=== PATIENT | female | born 1970 | race Asian ===

== ENCOUNTER 2023-11-04 20:23 | Inpatient (IN) ==
[~2023-11-04 20:23] MED LIST: ACETYLCYSTEINE IV ONE; D5W IV ONE
[2023-11-04 20:57] LABS: ABS Basophils 0.1 10^3/uL (0.0-0.1); ABS Eosinophils 0.2 10^3/uL (0.0-0.5); ABS Lymphocytes 2.9 10^3/uL (1.0-4.8); ABS Monocytes 0.8 10^3/uL (0.0-0.9); ABS Nucleated RBC 0.01 10^3/ul; Hematocrit 42.4 % (35-45); Hemoglobin 14.1 g/dL (11.5-14.3); Lymphocyte % 18.2 %; Mean Corpuscular Hemoglobin 29.7 pg (27-33); Mean Corpuscular Hgb Conc 33.2 g/dL (31-36); Mean Corpuscular Volume 89.4 fL (80-97); Mean Platelet Volume 7.1 fL (7.5-11.2); Platelet Count 332 10^3/uL (150-450); Red Blood Count 4.74 10^6/uL (3.63-4.92)
[2023-11-04] MEDS: NS 0.9% 1000 ml BAG 1,000 ML IV ONE ×2 (21:01→23:20)
[2023-11-04] MEDS: Ondansetron 4 mg VIAL 2 MG/ML 2 ml VIAL IV ONE (21:01)
[2023-11-04 21:36] LABS: ALT 86 U/L (7-52); AST 67 U/L (13-39); Albumin 4.7 g/dL (3.2-5.2); Albumin/Globulin Ratio 1.5 (1-3); Alkaline Phosphatase 79 U/L (35-149); Anion Gap 13 mmol/L (2-16); Blood Urea Nitrogen 11 mg/dL (6-24); C Reactive Protein < 1.00 mg/L (<8.01); CO2 Carbon Dioxide 21 mmol/L (22-32); Calcium 9.4 mg/dL (8.6-10.3); Chloride 101 mmol/L (101-111); Creatinine, Serum 0.73 mg/dL (0.51-0.95); Globulin 3.2 g/dL (2-4); Glucose 190 mg/dL (70-100); Lipase 53 U/L (11.0-82.0); Potassium 3.4 mmol/L (3.5-5.0); Sodium 135 mmol/L (135-145); Total Bilirubin 0.5 mg/dL (0.2-1.0); Total Protein 7.9 g/dL (6.4-8.9); eGFR CKD-EPI 98.9 (>60)
[2023-11-04] MEDS: Charcoal Activated/SORBITOL 50 GM/240 ML BTL PO ONE (21:58)
[2023-11-04] MEDS: NS 0.9% 1000 ml BAG 0 ML IV SCH (22:09)
[2023-11-04 22:45] LABS: High Sensitivity Troponin 1 Hr 3 pg/mL (<15)
[2023-11-04] MEDS: ACETYLCYSTEINE IV ONE (23:26)
[2023-11-04] MEDS: D5W IV ONE (23:26)
[2023-11-05] MEDS: NORMOSOL-R pH 7.4 1000 mL BAG 1,000 ML IV SCH (00:55)
[2023-11-05] MEDS: NS 0.9% 1000 ml BAG 1,000 ML IV SCH (00:57)
[2023-11-05 01:02] LABS: ABS Basophils 0.1 10^3/uL (0.0-0.1); ABS Lymphocytes 0.7 10^3/uL (1.0-4.8); ABS Monocytes 0.4 10^3/uL (0.0-0.9); ABS Neutrophils 12.3 10^3/uL (1.5-7.6); Hemoglobin 12.6 g/dL (11.5-14.3); Lymphocyte % 5.2 %; Mean Corpuscular Hemoglobin 29.1 pg (27-33); Mean Corpuscular Hgb Conc 32.3 g/dL (31-36); Mean Corpuscular Volume 90.1 fL (80-97); Platelet Count 226 10^3/uL (150-450); Red Blood Count 4.32 10^6/uL (3.63-4.92); White Blood Count 13.5 10^3/uL (3.8-11.8)
[2023-11-05] MEDS: D5W IV ONE ×2 (01:03→05:17)
[2023-11-05] MEDS: ACETYLCYSTEINE IV ONE ×2 (01:03→05:17)
[2023-11-05 01:07] LABS: Urine Appearance Clear; Urine Bilirubin Negative (Negative); Urine Blood Negative (Negative); Urine Color Light-Yellow; Urine Glucose 3+ (>=300 mg/dL) (Negative); Urine Ketones 4+ (Negative); Urine Nitrite Negative (Negative); Urine Protein Negative (Negative); Urine Specific Gravity 1.017 (1.002-1.030); Urine Urobilinogen Negative (Negative)
[2023-11-05 01:13] LABS: INR 1.04 (0.85-1.14)
[2023-11-05 02:09] LABS: Albumin 3.9 g/dL (3.2-5.2); Albumin/Globulin Ratio 1.4 (1-3); Calcium 7.5 mg/dL (8.6-10.3); Creatinine, Serum 0.57 mg/dL (0.51-0.95); Globulin 2.7 g/dL (2-4); Potassium 3.8 mmol/L (3.5-5.0); Total Bilirubin 0.9 mg/dL (0.2-1.0); Total Protein 6.6 g/dL (6.4-8.9); eGFR CKD-EPI 109.3 (>60)
[2023-11-05 07:16] LABS: ABS Basophils 0.1 10^3/uL (0.0-0.1); ABS Monocytes 0.7 10^3/uL (0.0-0.9); ABS Neutrophils 9.6 10^3/uL (1.5-7.6); Eosinophil % 0.1 %; Hematocrit 37.7 % (35-45); Hemoglobin 12.8 g/dL (11.5-14.3); Lymphocyte % 9.1 %; Mean Corpuscular Hemoglobin 30.2 pg (27-33); Mean Corpuscular Volume 88.8 fL (80-97); Platelet Count 245 10^3/uL (150-450); Red Blood Count 4.24 10^6/uL (3.63-4.92); Red Cell Distribution Width 13.7 % (12-17); White Blood Count 11.4 10^3/uL (3.8-11.8)
[2023-11-05 07:28] LABS: INR 1.11 (0.85-1.14)
[2023-11-05 08:20] LABS: Albumin 3.8 g/dL (3.2-5.2); Albumin/Globulin Ratio 1.4 (1-3); Calcium 7.5 mg/dL (8.6-10.3); Creatinine, Serum 0.56 mg/dL (0.51-0.95); Globulin 2.7 g/dL (2-4); Magnesium 1.8 mg/dL (1.9-2.7); Potassium 3.6 mmol/L (3.5-5.0); Total Bilirubin 1.3 mg/dL (0.2-1.0); Total Protein 6.5 g/dL (6.4-8.9); eGFR CKD-EPI 109.7 (>60)
[2023-11-05] MEDS: Magnesium Sulfate 2 gm BAG 2 GM/50 ML BAG IVPB ONE (09:02)
[2023-11-05] MEDS: Charcoal ACTIVATED 50 GM/240 ML BTL PO ONE ×2 (11:45→21:57)
[2023-11-05] MEDS: CYCLOSPORINE IV ONE ×2 (11:57→14:31)
[2023-11-05 12:08] LABS: INR 1.04 (0.85-1.14)
[2023-11-05 12:57] LABS: Calcium 7.8 mg/dL (8.6-10.3); Creatinine, Serum 0.61 mg/dL (0.51-0.95); Potassium 3.4 mmol/L (3.5-5.0); eGFR CKD-EPI 107.5 (>60)
[2023-11-05 12:58] LABS: Albumin 3.9 g/dL (3.2-5.2); Albumin/Globulin Ratio 1.5 (1-3); Globulin 2.6 g/dL (2-4); Total Bilirubin 1.7 mg/dL (0.2-1.0); Total Protein 6.5 g/dL (6.4-8.9)
[2023-11-05] MEDS: KCL 10 MEQ/50 ML IVPREMIX 10 MEQ/50 ML BAG IV SCH (13:14)
[2023-11-05] MEDS: Octreotide Acetate 50 MCG in NS 0.9% 50 ML 50 ML IV ONE (14:00)
[2023-11-05] MEDS: Ondansetron 4 mg VIAL 2 MG/ML 2 ml VIAL IV PRN (14:16)
[2023-11-05] MEDS: Octreotide Acetate 500 MCG in NS 0.9% 100 ml BAG 100 ML IV SCH (14:19)
[2023-11-05] MEDS: NS 0.9% IVPB ONE (14:31)
[2023-11-05] MEDS: CYCLOSPORINE IVPB ONE (14:31)
[2023-11-05 15:08] LABS: INR 1.02 (0.85-1.14)
[2023-11-05 15:39] LABS: Albumin 4.2 g/dL (3.2-5.2); Albumin/Globulin Ratio 1.4 (1-3); Alkaline Phosphatase 103 U/L (35-149); Blood Urea Nitrogen 5 mg/dL (6-24); CO2 Carbon Dioxide 20 mmol/L (22-32); Calcium 8.3 mg/dL (8.6-10.3); Chloride 108 mmol/L (101-111); Creatinine, Serum 0.55 mg/dL (0.51-0.95); Globulin 2.9 g/dL (2-4); Glucose 149 mg/dL (70-100); Sodium 137 mmol/L (135-145); Total Bilirubin 1.8 mg/dL (0.2-1.0); Total Protein 7.1 g/dL (6.4-8.9); eGFR CKD-EPI 110.2 (>60)
[2023-11-05 15:40] LABS: Anion Gap 9 mmol/L (2-16)
[2023-11-05 16:00] LABS: ALT 934 U/L (7-52)
[2023-11-05 17:20] LABS: Acetaminophen < 15 mcg/mL
[2023-11-05 17:26] LABS: Potassium, Whole Blood 6.2 mmol/L (3.4-4.5)
[2023-11-05 17:58] LABS: INR 1.06 (0.85-1.14)
[2023-11-05 18:30] LABS: Calcium 8.2 mg/dL (8.6-10.3); Creatinine, Serum 0.65 mg/dL (0.51-0.95); Potassium 3.7 mmol/L (3.5-5.0); eGFR CKD-EPI 105.9 (>60)
[2023-11-05 18:39] LABS: Albumin/Globulin Ratio 1.5 (1-3); Globulin 2.7 g/dL (2-4); Total Bilirubin 3.7 mg/dL (0.2-1.0); Total Protein 6.7 g/dL (6.4-8.9)
[2023-11-05 19:39] LABS: Hepatitis B Surface Antigen Nonreactive (Nonreactive)
[2023-11-05 19:44] LABS: Hepatitis A Ab IgM Negative (Negative)
[2023-11-05 19:45] LABS: Hepatitis B Core IgM Nonreactive (Nonreactive)
[2023-11-05 19:56] LABS: Hepatitis C Antibody Negative (Negative)
[2023-11-05] MEDS: ACETYLCYSTEINE IV SCH (23:11)
[2023-11-05] MEDS: D5W IV SCH (23:11)
[2023-11-05 23:31] LABS: INR 1.09 (0.85-1.14)
[2023-11-05 23:54] LABS: Calcium 8.2 mg/dL (8.6-10.3); Creatinine, Serum 0.69 mg/dL (0.51-0.95); Potassium 3.7 mmol/L (3.5-5.0); eGFR CKD-EPI 104.4 (>60)
[2023-11-05 23:56] LABS: Albumin 3.9 g/dL (3.2-5.2); Albumin/Globulin Ratio 1.4 (1-3); Globulin 2.7 g/dL (2-4); Total Bilirubin 4.3 mg/dL (0.2-1.0); Total Protein 6.6 g/dL (6.4-8.9)
[2023-11-06 04:05] LABS: ABS Monocytes 0.6 10^3/uL (0.0-0.9); ABS Neutrophils 6.3 10^3/uL (1.5-7.6); Eosinophil % 0.3 %; Hematocrit 39.4 % (35-45); Hemoglobin 13.6 g/dL (11.5-14.3); Lymphocyte % 12.1 %; Mean Corpuscular Hemoglobin 30.8 pg (27-33); Mean Corpuscular Hgb Conc 34.6 g/dL (31-36); Mean Platelet Volume 7.3 fL (7.5-11.2); Platelet Count 232 10^3/uL (150-450); Red Blood Count 4.43 10^6/uL (3.63-4.92); Red Cell Distribution Width 14.2 % (12-17); White Blood Count 7.9 10^3/uL (3.8-11.8)
[2023-11-06 04:19] LABS: INR 1.11 (0.85-1.14)
[2023-11-06 04:59] LABS: Albumin 3.9 g/dL (3.2-5.2); Albumin/Globulin Ratio 1.4 (1-3); Alkaline Phosphatase 126 U/L (35-149); Anion Gap 8 mmol/L (2-16); Blood Urea Nitrogen 3 mg/dL (6-24); CO2 Carbon Dioxide 23 mmol/L (22-32); Calcium 8.1 mg/dL (8.6-10.3); Chloride 105 mmol/L (101-111); Creatinine, Serum 0.68 mg/dL (0.51-0.95); Globulin 2.8 g/dL (2-4); Glucose 178 mg/dL (70-100); Sodium 136 mmol/L (135-145); Total Bilirubin 3.8 mg/dL (0.2-1.0); Total Protein 6.7 g/dL (6.4-8.9); eGFR CKD-EPI 104.7 (>60)
[2023-11-06 05:03] LABS: Potassium, Whole Blood 4.3 mmol/L (3.4-4.5)
[2023-11-06 05:19] LABS: ALT 1078 U/L (7-52)
[2023-11-06] MEDS: Charcoal Activated/SORBITOL 50 GM/240 ML BTL PO ONE (06:57)
[2023-11-06] MEDS: Charcoal ACTIVATED 50 GM/240 ML BTL PO ONE (07:25)
[2023-11-06 07:54] LABS: INR 1.15 (0.85-1.14)
[2023-11-06 08:30] LABS: Calcium 8.1 mg/dL (8.6-10.3); Creatinine, Serum 0.61 mg/dL (0.51-0.95); Potassium 3.8 mmol/L (3.5-5.0); eGFR CKD-EPI 107.5 (>60)
[2023-11-06 08:32] LABS: Albumin 3.9 g/dL (3.2-5.2); Albumin/Globulin Ratio 1.4 (1-3); Globulin 2.7 g/dL (2-4); Total Protein 6.6 g/dL (6.4-8.9)
[2023-11-06 12:11] LABS: INR 1.15 (0.85-1.14)
[2023-11-06 12:35] LABS: Calcium 8.4 mg/dL (8.6-10.3); Creatinine, Serum 0.64 mg/dL (0.51-0.95); Potassium 3.5 mmol/L (3.5-5.0); eGFR CKD-EPI 106.3 (>60)
[2023-11-06 12:39] LABS: Albumin 3.9 g/dL (3.2-5.2); Albumin/Globulin Ratio 1.4 (1-3); Globulin 2.8 g/dL (2-4); Total Bilirubin 3.4 mg/dL (0.2-1.0); Total Protein 6.7 g/dL (6.4-8.9)
[2023-11-06 15:49] LABS: INR 1.14 (0.85-1.14)
[2023-11-06 17:38] LABS: Albumin 3.8 g/dL (3.2-5.2); Albumin/Globulin Ratio 1.4 (1-3); Calcium 8.3 mg/dL (8.6-10.3); Creatinine, Serum 0.88 mg/dL (0.51-0.95); Globulin 2.7 g/dL (2-4); Potassium 3.6 mmol/L (3.5-5.0); Total Bilirubin 2.8 mg/dL (0.2-1.0); Total Protein 6.5 g/dL (6.4-8.9)
[2023-11-06 21:13] LABS: Calcium 8.3 mg/dL (8.6-10.3); Creatinine, Serum 0.71 mg/dL (0.51-0.95); Potassium 3.6 mmol/L (3.5-5.0); eGFR CKD-EPI 102.2 (>60)
[2023-11-06 22:24] LABS: Albumin 3.8 g/dL (3.2-5.2); Albumin/Globulin Ratio 1.4 (1-3); Globulin 2.7 g/dL (2-4); Total Bilirubin 2.6 mg/dL (0.2-1.0); Total Protein 6.5 g/dL (6.4-8.9)
[2023-11-07 03:00] LABS: Calcium 7.9 mg/dL (8.6-10.3); Creatinine, Serum 0.45 mg/dL (0.51-0.95); Potassium 3.3 mmol/L (3.5-5.0); eGFR CKD-EPI 115.7 (>60)
[2023-11-07 03:06] LABS: Albumin 3.6 g/dL (3.2-5.2); Albumin/Globulin Ratio 1.4 (1-3); Globulin 2.6 g/dL (2-4); Total Bilirubin 2.5 mg/dL (0.2-1.0); Total Protein 6.2 g/dL (6.4-8.9)
[2023-11-07 05:10] LABS: ABS Basophils 0.1 10^3/uL (0.0-0.1); ABS Eosinophils 0.1 10^3/uL (0.0-0.5); ABS Lymphocytes 1.7 10^3/uL (1.0-4.8); ABS Monocytes 0.7 10^3/uL (0.0-0.9); ABS Neutrophils 5.7 10^3/uL (1.5-7.6); Eosinophil % 1.4 %; Hematocrit 38.3 % (35-45); Hemoglobin 13.2 g/dL (11.5-14.3); Lymphocyte % 20.7 %; Mean Corpuscular Hemoglobin 30.5 pg (27-33); Mean Corpuscular Hgb Conc 34.3 g/dL (31-36); Mean Corpuscular Volume 88.8 fL (80-97); Mean Platelet Volume 7.2 fL (7.5-11.2); Platelet Count 208 10^3/uL (150-450); Red Blood Count 4.31 10^6/uL (3.63-4.92); Red Cell Distribution Width 14.1 % (12-17); White Blood Count 8.2 10^3/uL (3.8-11.8)
[2023-11-07 05:55] LABS: Creatinine, Serum 0.5 mg/dL (0.51-0.95); Potassium 3.5 mmol/L (3.5-5.0); eGFR CKD-EPI 112.8 (>60)
[2023-11-07 05:58] LABS: Albumin 3.6 g/dL (3.2-5.2); Albumin/Globulin Ratio 1.3 (1-3); Globulin 2.8 g/dL (2-4); Magnesium 1.9 mg/dL (1.9-2.7); Total Bilirubin 2.3 mg/dL (0.2-1.0); Total Protein 6.4 g/dL (6.4-8.9)
[2023-11-07] MEDS: D5W IV ONE (10:09)
[2023-11-07] MEDS: ACETYLCYSTEINE IV ONE (10:09)
[2023-11-07] MEDS: hydrALAZINE 20 mg/ml 1 ML Vial IV IV SLOW PU PRN (14:20)
[2023-11-07 18:11] LABS: Calcium 8.4 mg/dL (8.6-10.3); Creatinine, Serum 0.42 mg/dL (0.51-0.95); Potassium 3.4 mmol/L (3.5-5.0); eGFR CKD-EPI 117.6 (>60)
[2023-11-07 18:37] LABS: Albumin 3.7 g/dL (3.2-5.2); Albumin/Globulin Ratio 1.3 (1-3); Globulin 2.8 g/dL (2-4); Total Bilirubin 1.9 mg/dL (0.2-1.0); Total Protein 6.5 g/dL (6.4-8.9)
[2023-11-08] MEDS: ACETYLCYSTEINE IV SCH (02:19)
[2023-11-08] MEDS: D5W IV SCH (02:19)
[2023-11-08 05:32] LABS: ABS Basophils 0.1 10^3/uL (0.0-0.1); ABS Eosinophils 0.2 10^3/uL (0.0-0.5); ABS Lymphocytes 1.7 10^3/uL (1.0-4.8); ABS Monocytes 0.7 10^3/uL (0.0-0.9); ABS Neutrophils 5.9 10^3/uL (1.5-7.6); Eosinophil % 2.1 %; Hematocrit 38.4 % (35-45); Hemoglobin 13.3 g/dL (11.5-14.3); Lymphocyte % 19.7 %; Mean Corpuscular Hemoglobin 30.7 pg (27-33); Mean Corpuscular Hgb Conc 34.8 g/dL (31-36); Mean Corpuscular Volume 88.2 fL (80-97); Mean Platelet Volume 7.5 fL (7.5-11.2); Platelet Count 221 10^3/uL (150-450); Red Blood Count 4.35 10^6/uL (3.63-4.92); White Blood Count 8.5 10^3/uL (3.8-11.8)
[2023-11-08 05:52] LABS: INR 1.13 (0.85-1.14)
[2023-11-08 06:02] LABS: Calcium 8.3 mg/dL (8.6-10.3); Creatinine, Serum 0.43 mg/dL (0.51-0.95); Potassium 3.2 mmol/L (3.5-5.0)
[2023-11-08 06:06] LABS: Albumin 3.6 g/dL (3.2-5.2); Albumin/Globulin Ratio 1.4 (1-3); Globulin 2.6 g/dL (2-4); Magnesium 1.9 mg/dL (1.9-2.7); Total Bilirubin 1.6 mg/dL (0.2-1.0); Total Protein 6.2 g/dL (6.4-8.9)
[2023-11-08] MEDS: KCL 20 MEQ/100 ML IVPREMIX 20 MEQ/100 ML BAG IV SCH (06:14)
[2023-11-08] MEDS: Potassium Chlor 20 meq TAB.ER PO ONE ×2 (09:18→10:02)
[2023-11-08 16:53] LABS: Calcium 9.1 mg/dL (8.6-10.3); Creatinine, Serum 0.53 mg/dL (0.51-0.95); Potassium 3.3 mmol/L (3.5-5.0); eGFR CKD-EPI 111.2 (>60)
[2023-11-08 17:12] LABS: Albumin 3.7 g/dL (3.2-5.2); Albumin/Globulin Ratio 1.4 (1-3); Globulin 2.7 g/dL (2-4); Total Protein 6.4 g/dL (6.4-8.9)
[2023-11-08] MEDS ORDERED: D5W IV SCH (18:00)
[2023-11-08] MEDS ORDERED: ACETYLCYSTEINE IV SCH (18:00)
[2023-11-08 19:13] LABS: INR 1.02 (0.85-1.14)
[2023-11-09] MEDS: Potassium Chlor 20 meq TAB.ER PO ONE (01:44)
[2023-11-09 04:23] LABS: ABS Basophils 0.1 10^3/uL (0.0-0.1); ABS Eosinophils 0.3 10^3/uL (0.0-0.5); ABS Lymphocytes 1.5 10^3/uL (1.0-4.8); ABS Monocytes 0.8 10^3/uL (0.0-0.9); ABS Neutrophils 5.3 10^3/uL (1.5-7.6); Eosinophil % 3.8 %; Hematocrit 36.5 % (35-45); Hemoglobin 12.7 g/dL (11.5-14.3); Lymphocyte % 19.4 %; Mean Corpuscular Hemoglobin 30.6 pg (27-33); Mean Corpuscular Hgb Conc 34.7 g/dL (31-36); Mean Corpuscular Volume 88.1 fL (80-97); Mean Platelet Volume 7.4 fL (7.5-11.2); Platelet Count 239 10^3/uL (150-450); Red Blood Count 4.14 10^6/uL (3.63-4.92); Red Cell Distribution Width 14.4 % (12-17)
[2023-11-09 05:05] LABS: Calcium 8.4 mg/dL (8.6-10.3); Creatinine, Serum 0.54 mg/dL (0.51-0.95); Potassium 4.2 mmol/L (3.5-5.0); eGFR CKD-EPI 110.7 (>60)
[2023-11-09 05:06] LABS: Albumin 3.5 g/dL (3.2-5.2); Albumin/Globulin Ratio 1.3 (1-3); Globulin 2.8 g/dL (2-4); Magnesium 1.9 mg/dL (1.9-2.7); Total Protein 6.3 g/dL (6.4-8.9)
[2023-11-10 04:50] LABS: ABS Basophils 0.1 10^3/uL (0.0-0.1); ABS Eosinophils 0.3 10^3/uL (0.0-0.5); ABS Lymphocytes 1.5 10^3/uL (1.0-4.8); ABS Monocytes 0.6 10^3/uL (0.0-0.9); ABS Neutrophils 4.6 10^3/uL (1.5-7.6); Eosinophil % 4.3 %; Hematocrit 37.5 % (35-45); Hemoglobin 12.6 g/dL (11.5-14.3); Lymphocyte % 20.7 %; Mean Corpuscular Hemoglobin 29.9 pg (27-33); Mean Corpuscular Hgb Conc 33.5 g/dL (31-36); Mean Corpuscular Volume 89.1 fL (80-97); Mean Platelet Volume 7.2 fL (7.5-11.2); Platelet Count 253 10^3/uL (150-450); Red Blood Count 4.21 10^6/uL (3.63-4.92); Red Cell Distribution Width 14.4 % (12-17); White Blood Count 7.1 10^3/uL (3.8-11.8)
[2023-11-10 05:46] LABS: Albumin 3.8 g/dL (3.2-5.2); Albumin/Globulin Ratio 1.3 (1-3); Calcium 9.1 mg/dL (8.6-10.3); Creatinine, Serum 0.57 mg/dL (0.51-0.95); Potassium 4.3 mmol/L (3.5-5.0); Total Bilirubin 0.9 mg/dL (0.2-1.0); Total Protein 6.8 g/dL (6.4-8.9); eGFR CKD-EPI 109.3 (>60)
[2023-11-10 06:02] LABS: INR 0.94 (0.85-1.14)
[2023-11-10 11:19] VITALS: BP 136/96
== END 2023-11-10 11:55 | disposition home or self-care (01) | DRG 816 ==
LOC: ED 20:23 → EDHOLD 23:03 → ICU 11-05 00:16
PROVIDERS: ADMIT Internal Medicine; ATTEND Internal Medicine